=== PATIENT | female | born 1980 | race African-American/Black ===

== ENCOUNTER 2024-08-07 10:22 | Day surgery (SDC) | payer OTHER ==
[2024-08-07] MEDS ORDERED: diphenhydrAMINE 25 MG CAP ONE (11:49)
[2024-08-07] MEDS ORDERED: Acetaminophen 500 MG TAB ONE (11:49)
[2024-08-07] MEDS: Acetaminophen 500 MG TAB PO SCH (11:50)
[2024-08-07] MEDS: diphenhydrAMINE 25 MG CAP PO SCH (11:50)
[2024-08-07 14:49] VITALS: BP 109/63; TEMP 98.1
== END 2024-08-07 14:51 | disposition home or self-care (01) ==
LOC: ONC/OP 10:22
PROVIDERS: ATTEND Internal Medicine
DX: D64.9 Anemia, unspecified (principal); D69.6 Thrombocytopenia, unspecified
CPT/HCPCS: 36430; 86850; 86900; 86901; P9016

== ENCOUNTER 2024-08-30 09:42 | Day surgery (SDC) | payer SELFPAY ==
[2024-08-30] MEDS ORDERED: Acetaminophen 500 MG TAB ONE (11:18)
[2024-08-30] MEDS ORDERED: diphenhydrAMINE 25 MG CAP ONE (11:18)
[2024-08-30] MEDS: diphenhydrAMINE 25 MG CAP PO SCH (11:20)
[2024-08-30] MEDS: Acetaminophen 500 MG TAB PO SCH (11:20)
[2024-08-30 14:12] VITALS: BP 119/58; TEMP 98.3
== END 2024-08-30 14:15 | disposition home or self-care (01) ==
LOC: ONC/OP 09:42
PROVIDERS: ATTEND Internal Medicine
DX: D64.9 Anemia, unspecified (principal); D69.6 Thrombocytopenia, unspecified
CPT/HCPCS: 36430; 86850; 86900; 86901; P9016

== ENCOUNTER 2025-03-28 14:38 | Outpatient (CLI) | payer OTHER | END 2025-03-28 14:39 | disposition home or self-care (01) | LOC: BICMAMMO 14:38 | PROVIDERS: ATTEND Family Medicine | DX: Z12.31 Encounter for screening mammogram for malignant neoplasm of breast (principal) | CPT/HCPCS: 77063; 77067 ==

== ENCOUNTER 2025-06-21 09:11 | Day surgery (SDC) | payer OTHER ==
[2025-06-21] MEDS ORDERED: diphenhydrAMINE 25 MG CAP ONE (10:43)
[2025-06-21] MEDS ORDERED: Acetaminophen 500 MG TAB ONE (10:43)
[2025-06-21] MEDS: Acetaminophen 500 MG TAB PO SCH (10:44)
[2025-06-21] MEDS: diphenhydrAMINE 25 MG CAP PO SCH (10:44)
[2025-06-21 13:22] VITALS: BP 103/55; TEMP 98.3
== END 2025-06-21 13:23 | disposition home or self-care (01) ==
LOC: ONC/OP 09:11
PROVIDERS: ATTEND Internal Medicine
DX: D64.9 Anemia, unspecified (principal); D69.6 Thrombocytopenia, unspecified
CPT/HCPCS: 36430; 86850; 86900; 86901; P9016